=== PATIENT | female | born 1930 | race Caucasian/White ===

== ENCOUNTER 2017-03-17 03:31 | Emergency (ER) | payer MEDICARE ==
[~2017-03-17] VITALS: Ht 149.9 cm; Wt 49.0 kg
[2017-03-17] MEDS ORDERED: AMLODIPINE BES2.5 MG ORAL (03:38)
[2017-03-17] MEDS ORDERED: SYMLIN600 MCG/1 SUBQ (03:38)
[2017-03-17] MEDS ORDERED: FUROSEMIDE20 M1 ORAL (03:38)
[2017-03-17] MEDS ORDERED: GLIPIZIDE5 MG ORAL (03:38)
[2017-03-17] MEDS ORDERED: LISINOPRIL2.5 MG ORAL (03:38)
[2017-03-17] MEDS ORDERED: METOPROLOL TART25 MG ORAL (03:38)
[2017-03-17 03:40] VITALS: BP 178/68
[2017-03-17] MEDS ORDERED: Solu-MEDROL 125mg Inj IVP ONE (03:45)
[2017-03-17] MEDS ORDERED: Albuterol ud Inhalation HHN ONE (03:45)
[2017-03-17] MEDS ORDERED: Ipratropium 0.02% Inh Soln 2.5ml UD HHN ONE (03:45)
[2017-03-17 04:16] LABS: BASOPHILS % (AUTO) 2.1 % (0.0-2.0); EOSINOPHILS % (AUTO) 2.5 % (0.0-3.0); LYMPHOCYTES % (AUTO) 32.7 % (20.0-45.0); MEAN CORPUSCULAR HEMOGLOBIN 30.6 PG (27.0-31.0); MEAN CORPUSCULAR HGB CONC 31.7 G/DL (32.0-36.0); MEAN CORPUSCULAR VOLUME 96 FL (80-99); MEAN PLATELET VOLUME 7.5 FL (6.5-10.1); MONOCYTES % (AUTO) 5.5 % (1.0-10.0); NEUTROPHILS % (AUTO) 57.3 % (45.0-75.0); PLATELET COUNT 397 K/UL (150-450); RED BLOOD COUNT 3.24 M/UL (4.20-5.40); RED CELL DISTRIBUTION WIDTH 15.3 % (11.6-14.8)
[2017-03-17 04:25] LABS: ANION GAP 10 mmol/L (5-15); CALCIUM 9.5 MG/DL (8.5-10.1); CARBON DIOXIDE 25 MMOL/L (21-32); CHLORIDE 104 MMOL/L (98-107); CREATININE 1.4 MG/DL (0.55-1.30); POTASSIUM 4.2 MMOL/L (3.5-5.1); SODIUM 139 MMOL/L (136-145)
[2017-03-17 04:26] LABS: INR 1.8 (0.9-1.1); PROTHROMBIN TIME 19.1 SEC (9.30-11.50)
[2017-03-17 04:39] LABS: ALANINE AMINOTRANSFERASE 33 U/L (12-78); ALBUMIN/GLOBULIN RATIO 0.7 (1.0-2.7); ASPARTATE AMINO TRANSFERASE 39 U/L (15-37); CKMB 1.6 NG/ML (0.0-3.6)
[2017-03-17 04:40] LABS: BILIRUBIN,DIRECT 0.4 MG/DL (0.0-0.3)
[2017-03-17 04:43] LABS: APPEARANCE,URINE CLEAR; KETONES,URINE NEGATIVE (NEGATIVE); LEUKOCYTE ESTERASE ,URINE NEGATIVE (NEGATIVE); NITRITE,URINE NEGATIVE (NEGATIVE); PH,URINE 6 (4.5-8.0); PROTEIN,URINE 4+ (NEGATIVE); UROBILINOGEN,URINE NORMAL MG/DL (0.0-1.0)
[2017-03-17 05:00] LABS: AMORPHOUS SEDIMENT,UR MANY /LPF; BACTERIA,URINE FEW /HPF; SQUAMOUS EPITHELIAL CELL,UR FEW /LPF (NONE/OCC); WBC,URINE 0-2 /HPF (0 - 2)
[2017-03-17 05:30] VITALS: BP 139/45
--- NOTE | 2017-03-17 05:31 | Emergency Room Report ---
History of Present Illness General Chief Complaint: Dyspnea/Respdistress Source: Patient, Medical Record, EMS Present Illness HPI Is an 86-year-old female with history of diabetes, hypertension, CAD with A. fib. Also history of CHF. Patient presents with shortness of breath. Onset tonight. Hard time breathing. EMS said she was very tight and wheezing. They gave her albuterol and put on oxygen and transferred here. Patient denies any chest pain. Has tightness however. No nausea vomiting. No diaphoresis. Worse with exertion. Worse with lying flat. Allergies: Coded Allergies: PENICILLINS (Verified Allergy, Unknown, 03/17/17) Patient History Past Medical History: see triage record, old chart reviewed, DM, HTN, CAD, CHF , AFib Past Surgical History: other Pertinent Family History: none Social History: Denies: smoking Last Menstrual Period: na Now: No Immunizations: other Reviewed Nursing Documentation: PMH: Agreed, PSxH: Agreed Nursing Documentation-PMH Hx Cardiac Problems: Yes Hx Hypertension: Yes Hx Diabetes: Yes Review of Systems Eye: Denies: eye pain, blurred vision ENT: Denies: ear pain, nose congestion, throat swelling Respiratory: Reports: shortness of breath, wheezing, Denies: cough Cardiovascular: Denies: chest pain, palpitations Gastrointestinal: Denies: abdominal pain, diarrhea, nausea, vomiting Musculoskeletal: Denies: back pain, joint pain Skin: Denies: rash Neurological: Denies: headache, numbness Endocrine: Denies: increased thirst, increased urine Hematologic/Lymphatic: Denies: easy bruising All Other Systems: negative except mentioned in HPI Physical Exam Vital Signs Date Time Temp Pulse Resp B/P (MAP) Pulse Ox O2 Delivery O2 Flow Rate FiO2 03/17/17 03:34 97.2 88 28 178/68 94 Nasal Cannula 2.0 03/17/17 03:40 94 vitals with hypertension and hypoxia Sp02 EP Interpretation: reviewed, normal General Appearance: well appearing, alert, moderate distress Head: normocephalic, atraumatic Eyes: bilateral eye PERRL, bilateral eye EOMI ENT: hearing grossly normal, normal pharynx Neck: full range of motion, supple, no meningismus Respiratory: chest non-tender, rales, wheezing Cardiovascular #1: regular rate, rhythm, no murmur Gastrointestinal: normal bowel sounds, non tender, no mass, no organomegaly, no bruit, non-distended Musculoskeletal: back normal, gait/station normal, normal range of motion Psychiatric: mood/affect normal Skin: warm/dry Procedures Critical Care Time Critical Care Time Critical care is mandated in this patient who presented with respiratory distress secondary to CHF. Patient require my urgent intervention to attenuate the risks of metabolic collapse which may lead to cardiovascular collapse and . Critical care time is 35 minutes excluding any reportable procedure. Critical care time included evaluation, multiple reevaluation, looking at old charts, interpreting laboratory and diagnostic data, discussing case with patient and family and consultants, and charting. Medical Decision Making Diagnostic Impression: Primary Impression: Respiratory distress Additional Impressions: CHF exacerbation Qualified Codes: I50.9 - Heart failure, unspecified Wheezing Proteinuria Qualified Codes: R80.9 - Proteinuria, unspecified Anemia Qualified Codes: D64.9 - Anemia, unspecified ER Course Patient present with respiratory distress and has acute CHF. She bleeding better after oxygen and Lasix. She diuresed the pharmacy she now. Looks much more comfortable. No evidence of ACS, PE, dissection, pneumonia to name a few. I discussed the case with Josue Chacon who is that there for transfer. The DrRaven is Dr. Giang. Laboratory Tests Test 03/17/17 04:00 03/17/17 04:23 White Blood Count 10.0 K/UL (4.8-10.8) Red Blood Count 3.24 M/UL (4.20-5.40) L Hemoglobin 9.9 G/DL (12.0-16.0) L Hematocrit 31.1 % (37.0-47.0) L Mean Corpuscular Volume 96 FL (80-99) Mean Corpuscular Hemoglobin 30.6 PG (27.0-31.0) Mean Corpuscular Hemoglobin Concent 31.7 G/DL (32.0-36.0) L Red Cell Distribution Width 15.3 % (11.6-14.8) H Platelet Count 397 K/UL (150-450) Mean Platelet Volume 7.5 FL (6.5-10.1) Neutrophils (%) (Auto) 57.3 % (45.0-75.0) Lymphocytes (%) (Auto) 32.7 % (20.0-45.0) Monocytes (%) (Auto) 5.5 % (1.0-10.0) Eosinophils (%) (Auto) 2.5 % (0.0-3.0) Basophils (%) (Auto) 2.1 % (0.0-2.0) H Prothrombin Time 19.1 SEC (9.30-11.50) H Prothromb Time International Ratio 1.8 (0.9-1.1) H Activated Partial Thromboplast Time 32 SEC (23-33) Sodium Level 139 MMOL/L (136-145) Potassium Level 4.2 MMOL/L (3.5-5.1) Chloride Level 104 MMOL/L (98-107) Carbon Dioxide Level 25 MMOL/L (21-32) Anion Gap 10 mmol/L (5-15) Blood Urea Nitrogen 24 mg/dL (7-18) H Creatinine 1.4 MG/DL (0.55-1.30) H Estimat Glomerular Filtration Rate mL/min (>60) Glucose Level 217 MG/DL (74-106) H Calcium Level 9.5 MG/DL (8.5-10.1) Total Bilirubin 1.7 MG/DL (0.2-1.0) H Direct Bilirubin 0.4 MG/DL (0.0-0.3) H Aspartate Amino Transf (AST/SGOT) 39 U/L (15-37) H Alanine Aminotransferase (ALT/SGPT) 33 U/L (12-78) Alkaline Phosphatase 327 U/L (46-116) H Total Creatine Kinase 58 U/L (26-308) Creatine Kinase MB 1.6 NG/ML (0.0-3.6) Creatine Kinase MB Relative Index 2.7 Troponin I 0.007 ng/mL (0.000-0.056) Pro-B-Type Natriuretic Peptide 1970 pg/mL (0-125) H Total Protein 8.0 G/DL (6.4-8.2) Albumin 3.4 G/DL (3.4-5.0) Globulin 4.6 g/dL Albumin/Globulin Ratio 0.7 (1.0-2.7) L Urine Color Yellow Urine Appearance Clear Urine pH 6 (4.5-8.0) Urine Specific [place] 1.020 (1.005-1.035) Urine Protein 4+ (NEGATIVE) H Urine Glucose (UA) 1+ (NEGATIVE) H Urine Ketones Negative (NEGATIVE) Urine Occult Blood 2+ (NEGATIVE) H Urine Nitrite Negative (NEGATIVE) Urine Bilirubin Negative (NEGATIVE) Urine Urobilinogen Normal MG/DL (0.0-1.0) Urine Leukocyte Esterase Negative (NEGATIVE) Urine RBC 10-15 /HPF (0 - 2) H Urine WBC 0-2 /HPF (0 - 2) Urine Squamous Epithelial Cells Few /LPF (NONE/OCC) Urine Amorphous Sediment Many /LPF (NONE) H Urine Bacteria Few /HPF (NONE) Lab Results Impression labs with elevated BNP. EKG Diagnostic Results Rate: normal Rhythm: NSR ST Segments: no acute changes Rhythm Strip Diag. Results Rhythm Strip Time: 05:29 EP Interpretation: yes Rate: 81 Rhythm: NSR, no PVC's Chest X-Ray Diagnostic Results Chest X-Ray Diagnostic Results : Chest X-Ray Ordered: Yes # of Views/Limited/Complete: 1 View Indication: Shortness of Breath EP Interpretation: Yes Interpretation: no consolidation, no pneumothorax, other - chf Impression: Other - chf Electronically Signed by: Genaro Morin MD Last Vital Signs Date Time Temp Pulse Resp B/P (MAP) Pulse Ox O2 Delivery O2 Flow Rate FiO2 03/17/17 04:00 89 18 100 Nasal Cannula 2.0 28 03/17/17 03:40 97.2 178/68 Status: improved Disposition: XFER SHT-TRM HOSP Condition: Stable Referrals: [facility] (PCP) GENARO MORIN M.D. Mar 17, 2017 05:31
[2017-03-17 06:50] VITALS: BP 144/43
[2017-03-17 07:50] VITALS: BP 149/47
[2017-03-17 08:55] VITALS: BP 151/51
[2017-03-17 09:45] VITALS: BP 146/52
--- NOTE | 2017-03-17 14:30 | Diagnostic Imaging Report ---
Indication: SOB Technique: One view of the chest Comparison: none Findings: Inspiration is suboptimal, resulting in crowding of the bronchovascular markings There is bilateral perihilar pulmonary interstitial edema. There may be some retrocardiac consolidation. There may be trace bilateral pleural fluid. Heart size is probably normal. Impression: Bilateral perihilar interstitial edema and possible bilateral pleural effusions
--- NOTE | 2017-03-18 17:01 | Cardiology Report ---
APPROVED REPORT EKG Measurement Heart [id number] Sinus rhythm with premature supraventricular complexes Septal infarct, age undetermined Abnormal ECG
== END 2017-03-17 09:45 | disposition short-term general hospital (02) ==
LOC: EDBD 03:31 → EMR 03:46
DX: R06.03 Acute respiratory distress (principal); I11.0 Hypertensive heart disease with heart failure; I50.9 Heart failure, unspecified; E11.9 Type 2 diabetes mellitus without complications; R80.9 Proteinuria, unspecified; I25.10 Atherosclerotic heart disease of native coronary artery without angina pectoris; I48.91 Unspecified atrial fibrillation; Z88.0 Allergy status to penicillin
CPT/HCPCS: 36415; 51702; 71010; 80053; 81003; 82248; 82550; 82553; 83880; 84484; 85025; 85610; 85730; 93005; 94640; 94664; 96374; 96375; 99291; J1940; J2930